=== PATIENT | female | born 1995 | race Caucasian/White ===

== ENCOUNTER 2018-07-13 05:27 | Inpatient (IN) | payer OTHER ==
[~2018-07-13 05:27] MED LIST: DEXTROSE 5%-LACTATED RINGERS 1,000 ML IV SCH
[2018-07-13 06:27] LABS: BASO % 0.3 % (0-2.0); HEMATOCRIT 34.4 % (32.4-45.2); HEMOGLOBIN 12.3 GM/dL (10.7-15.3); LYMPH % 29.3 % (8-40); MCH 32.6 pg (25.7-33.7); MCHC 35.8 g/dl (32.0-36.0); MEAN CELL VOLUME 91.1 fl (80-96); MEAN PLT VOLUME 8.6 fl (7.5-11.1); MONO % 5.1 % (3.8-10.2); NEUT % 64.3 % (42.8-82.8); PLATELET COUNT 274 K/MM3 (134-434); RBC 3.78 M/mm3 (3.60-5.2); WHITE BLOOD COUNT 7.4 K/mm3 (4.0-10.0)
[2018-07-13 06:29] VITALS: BMI 25.9
[2018-07-13 06:30] LABS: URINE APPEARANCE SLCLOUDY; URINE BILIRUBIN NEGATIVE (<2.0 mg/dL); URINE COLOR LTYELLOW; URINE GLUCOSE (UA) NEGATIVE (NEGATIVE); URINE KETONE NEGATIVE (NEGATIVE); URINE LEUK ESTERASE TRACE (NEGATIVE); URINE NITRITE NEGATIVE (NEGATIVE); URINE PROTEIN NEGATIVE (NEGATIVE); URINE UROBILINOGEN NEGATIVE mg/dL (0.2-1.0)
[2018-07-13 06:39] LABS: INR 0.87 (0.83-1.09); PROTHROMBIN TIME (PATIENT) 10.3 SEC (9.7-13.0)
[2018-07-13 06:42] LABS: ACTIVATED PTT 25.7 SECONDS (25.2-36.5)
[2018-07-13 06:43] LABS: COCAINE, UR NEGATIVE ng/ml (CUTOFF=300); METHADONE, UR NEGATIVE ng/ml (CUTOFF=300); OPIATES, URI NEGATIVE ng/ml (CUTOFF=300); PHENCYCLIDINE,URINE NEGATIVE ng/ml (CUTOFF=25); URINE AMPHETAMINES NEGATIVE ng/ml (CUTOFF=500); URINE BARBITURATES NEGATIVE ng/ml (CUTOFF=200); URINE BENZODIAZEPINES NEGATIVE ng/ml (CUTOFF=200)
[2018-07-13 06:45] LABS: EPI CELLS FEW /HPF (FEW); URINE BACTERIA RARE /hpf (NONE SEEN)
[2018-07-13 06:47] LABS: ANION GAP 10 MMOL/L (8-16); BLOOD UREA NITROGEN 12 mg/dL (7-18); CALCIUM 8.1 mg/dL (8.5-10.1); CHLORIDE 107 mmol/L (98-107); CO2 21 mmol/L (21-32); CREATININE 0.5 mg/dL (0.55-1.3); GLUCOSE,RANDOM 82 mg/dL (74-106); POTASSIUM 4.2 mmol/L (3.5-5.1); SODIUM 138 mmol/L (136-145)
--- NOTE | 2018-07-13 08:51 | HP ---
Past Medical History - Primary Care Physician PCP:: Basil Collado - Admission Chief Complaint: 23yo P0 with at EGA 39wks admitted with SROM in latent labor. History of Present Illness: complicated by: Late PNC transfer from [place] with limited care History Source: Patient, Medical Record Limitations to Obtaining History: No Limitations - Past Medical History DIAL POLISHER: No: Alzheimer's, CVA, Dementia, Migraine, Multiple Sclerosis, Peripheral Neuropathy, Parkinson's, Seizure, Syncope, TIA, Vertigo, Other Cardiovascular: No: AFIB, Aneurysm, Aortic Insufficiency, Aortic Stenosis, CAD, CHF, Deep Vein Thrombosis, HTN, Hyperlipdemia, [place], Mitral Insufficiency, Mitral Stenosis, Murmur, Pulmonary Hypertension, Other Pulmonary: No: Asthma, Bronchitis, Cancer, COPD, O2 Dependent, Pneumonia, Previously Intubated, Pulmonary Embolus, Pulmonary Fibrosis, Sleep Apnea, Other Gastrointestinal: No: Ascites, Cancer, Constipation, Crohn's Disease, Diverticulitis, Diverticulosis, Esophageal Varices, Gastritis, GERD, GI Bleed, Hemorrhoids, Hiatal Hernia, Inflamatory Bowel Disease, Irritable Bowel Disease, Pancreatitis, Peptic Ulcer Disease, Ulcerative Colitis, Other Hepatobiliary: No: Cirrhosis, Cholelithiasis, Cholecystitis, Choledocholithiasis , Hepatitis A, Hepatitis B, Hepatitis C, Other Renal/: No: Renal Failure, Renal Inusuff, BPH, Cancer, Hematuria, Hemodialysis , Neurogenic Bladder, Renal Calculi, UTI, Other Reproductive: No: Ectopic , Endometriosis, Fibroids, PID, Polycystic Ovary Syndrome, Postmenopausal, Other ...: 1 ...Para: 0 ...Term: 0 ...: 0 ...Spon : 0 ...Induced : 0 ...Multiple Gestation: 0 ... Weeks Gestation by Dates: 39.0 ...EDC by Dates: 07/20/18 Heme/Onc: No: Anemia, B12 Deficiency, Bleeding Disorder, Cancer, Current Chemotherapy, Current Radiation Therapy, Hemochromatosis, Hypercoaguable State, Myeloproliferative Synd, Sickle Cell Disease, Sickle Cell Trait, Thrombocytopenia, Other Infectious Disease: No: AIDS, C-Diff, Herpes Zoster, HIV, MRSA, STD's, Tuberculosis, VREF, Other Psych: No: Addictions, Anxiety, Bipolar, Depression, Panic, Psychosis, Schizophrenia, Other Musculoskeletal: No: Bursitis, Chronic low back pain, Hemiparesis, Hemiplegia, Osteoarthritis, Paraplegia, Other Rheumatology: No: Fibromyalgia, Gout, Lupus, Rheumatoid Arthritis, Sarcoidosis, Vasculitis, Other ENT: No: Allergic Rhinitis, Sinusitis, Other Endocrine: No: Charli's Disease, [place]'s Disease, Diabetes Insipidus, Diabetes Mellitus, Hyperparathyroidism, Hyperthyroidism, Hypothyroidism, Osteopenia, SIADH, Other Dermatology: No: Basal Cell, Cellulitis, Eczema, Melanoma, Psoriasis, Squamous Cell, Other - Past Surgical History Past Surgical History: Yes: Breast Biopsy Hx Myomectomy: No Hx Transabdominal Cerclage: No - Smoking History Smoking history: Never smoked Have you smoked in the past 12 months: No - Alcohol/Substance Use Hx Alcohol Use: No - Social History ADL: Independent History of Recent Travel: Yes Home Medications - Allergies Allergies/Adverse Reactions: Allergies Allergy/AdvReac Type Severity Reaction Status Date / Time No Known Allergies Allergy Verified 07/13/18 06:10 - Home Medications Home Medications: Ambulatory Orders Vitamins (Sjr) - 1 tab PO DAILY 07/13/18 Family Disease History - Family Disease History Family History: Unable to Obtain Review of Systems - Review of Systems Constitutional: reports: No Symptoms Eyes: reports: No Symptoms HENT: reports: No Symptoms Neck: reports: No Symptoms Cardiovascular: reports: No Symptoms Respiratory: reports: No Symptoms Gastrointestinal: reports: No Symptoms Genitourinary: reports: No Symptoms Breasts: reports: No Symptoms Reported Musculoskeletal: reports: No Symptoms Integumentary: reports: No Symptoms Neurological: reports: No Symptoms Endocrine: reports: No Symptoms Hematology/Lymphatic: reports: No Symptoms Psychiatric: reports: No Symptoms Pain Intensity: 1 Physical Exam - Maternity Vital Signs: Vital Signs Temperature 98.6 F 07/13/18 08:00 Pulse Rate 84 07/13/18 08:00 Respiratory Rate 20 07/13/18 08:00 Blood Pressure 131/83 07/13/18 08:00 O2 Sat by Pulse Oximetry (%) Constitutional: Yes: Well Nourished, No Distress, Calm Eyes: Yes: WNL, Conjunctiva Clear, EOM Intact HENT: Yes: WNL, Atraumatic, Normocephalic Neck: Yes: WNL, Supple, Trachea Midline Cardiovascular: Yes: WNL, Regular Rate and Rhythm Lungs: Clear to auscultation, Normal air movement - Abdominal Exam/OB Fundal Height: 39 Number of Fetuses: Single Presentation: Vertex Contractions: Yes Regularity: Irregular Intensity: Mild Monitor Mode: External Heart Rate (range): 145 Heart Rate Location: Midline Category: I Accelerations: Non-Uniform Decelerations: None - Vaginal Exam/OB Vaginal Bleediing: No Speculum Exam: No Dilatation (cm): 2 Amniotic Membrane Status: Leaking Nitrazine Test: Positive Amniotic Fluid: Yes: Clear Presentation: Vertex/Position - Physical Exam Musculoskeletal: Yes: WNL Extremities: Yes: WNL Edema: No Integumentary: Yes: WNL Deep Tendon Reflex Grade: Normal +2 ...Motor Strength: WNL Psychiatric: Yes: WNL, Alert, Oriented - Labs Lab Results: CBC, BMP 07/13/18 05:30 07/13/18 05:30 Hemorrhage Risk Assessment - Risk Factors Medium Risk Factors: Yes: None High Risk Factors: Yes: None Risk Score: 1 Risk Level: Medium Risk Assessment/Plan 23yo P0 with at EGA 39wks admitted with SROM in latent labor. Pt is early latent labor. She has no complaints. The fetus with Category I tracing. Plan expectant management and augmentation of labor later.
[2018-07-13] MEDS ORDERED: OXYTOCIN 30 UNITS in 0.9% NS 30 UNIT/500 ML INFUS.BAG IVPB SCH (10:15)
[2018-07-13] MEDS ORDERED: DEXTROSE 5%-LACTATED RINGERS 1,000 ML IV SCH (10:15)
[2018-07-13] MEDS ORDERED: BUTORPHANOL TARTRATE 1 MG/ML VIAL IVPB ONE (10:30)
[2018-07-13] MEDS ORDERED: PROMETHAZINE HCL 25 MG/1 ML VIAL IVPB ONE (10:30)
[2018-07-13] MEDS ORDERED: TUBERCULIN PPD 5 TU/0.1ML SYRINGE (IN PATIENT USE ONLY) ID ONE (10:30)
[2018-07-13] MEDS ORDERED: OXYTOCIN 20 UNITS in 0.9% NS 20 UNIT/1,000 ML INFUS.BAG IV ONE (13:14)
[2018-07-13] MEDS ORDERED: LIDOCAINE HCL 1% PRESERVATIVE FREE - 30ML VIAL ONE (13:15)
--- NOTE | 2018-07-13 13:39 | PN ---
Ante-Partal Exam - Subjective Subjective: Patient comfortable, no complaints Vital Signs: Vital Signs Temperature 98.3 F 07/13/18 13:00 Pulse Rate 74 07/13/18 13:00 Respiratory Rate 20 07/13/18 13:00 Blood Pressure 124/73 07/13/18 13:00 O2 Sat by Pulse Oximetry (%) Bleeding: No Headache: No Visual changes: No Right upper quadrant pain: No - Contractions Contractions: Yes Regularity: Regular Intensity: Moderate Monitor Mode: External - Exam during Labor Heart Rate: 150 Variability: Moderate Category: I Monitor Accelerations: Present Monitor Decelerations: None Exam: Vaginal Dilatation (cm): 6 Effacement (%): 70 Amniotic Membrane Status: Ruptured (forebag ruptured) Amniotic Fluid: Clear Presentation: Vertex Station: -1 - Intrapartum Hemorrhage Risk Medium Risk Factors: None High Risk Factors: None Risk Score: 0 Risk Level: Low Risk - Assessment/Plan Assessment/Plan: 23 yo active labor 1. good cervical change on pitocin, will continue per protocol 2. GBS negative 3. Declines offer for pain control 4. Category I FHT 5. Will proceed for expectant management
[2018-07-13] MEDS ORDERED: BUTORPHANOL TARTRATE 1 MG/ML VIAL ONE ×2 (16:41)
[2018-07-13] MEDS ORDERED: PROMETHAZINE HCL 25 MG/1 ML VIAL ONE (16:41)
--- NOTE | 2018-07-13 16:44 | PN ---
Ante-Partal Exam - Subjective Subjective: Patient reports pain with contractions Vital Signs: Vital Signs Temperature 98.5 F 07/13/18 16:00 Pulse Rate 83 07/13/18 16:00 Respiratory Rate 20 07/13/18 16:00 Blood Pressure 117/73 07/13/18 16:00 O2 Sat by Pulse Oximetry (%) Bleeding: No Headache: No Visual changes: No Right upper quadrant pain: No - Contractions Contractions: Yes Regularity: Regular Intensity: Strong Monitor Mode: External - Exam during Labor Heart Rate: 155 Variability: Moderate Category: I Monitor Accelerations: Absent Monitor Decelerations: None Exam: Vaginal Dilatation (cm): 8 Effacement (%): 90 Amniotic Membrane Status: Ruptured Amniotic Fluid: Clear Presentation: Vertex Station: -1 - Intrapartum Hemorrhage Risk Medium Risk Factors: None High Risk Factors: None Risk Score: 0 Risk Level: Low Risk - Assessment/Plan Assessment/Plan: 23 yo active labor 1. Good cervical change. Will continue pitocin per protocol 2. Declines offer for epidural will give stadol 3. GBS negative 4. Will proceed with expectant management
[2018-07-13] MEDS ORDERED: BENZOCAINE 20% 57 GM BOTTLE TP PRN (20:38)
[2018-07-13] MEDS ORDERED: METHYLERGONOVINE MALEATE 0.2 MG/1 ML AMP IM PRN (20:38)
[2018-07-13] MEDS ORDERED: WITCH HAZEL 50% (TUCKS) 40 PAD/JAR PAD TP PRN (20:38)
[2018-07-13] MEDS ORDERED: BISACODYL 10 MG SUPP.RECT RC PRN (20:38)
[2018-07-13] MEDS ORDERED: BENZOCAINE 28 GM HEMORRHOIDAL OINTMENT TP PRN (20:38)
--- NOTE | 2018-07-13 20:43 | PN ---
Delivery - Delivery Vaginal Delivery: No Problems Type of Anesthesia: None (IV Stadol / Phenergan) Episiotomy/Laceration: Left Mediolateral (second degree), Right Mediolateral ( first degree), 2nd degree EBL (cc): 500 Delivery, Single - Stages of Labor Date 1st Stage Initiatied: 07/13/18 Time 1st Stage Initiated: 16:40 Date 2nd Stage Initiated: 07/13/18 Time 2nd Stage Initiated: 19:15 Date of Delivery: 07/13/18 Time of Delivery: 20:03 Date Placenta Delivered: 07/13/18 Time Placenta Delivered: 20:24 Placenta: Yes: Spontaneous - Condition of Infant Gender: Female Position: Left, OA - 1 Minute Total Score: 8 5 Minutes Total Score: 9 - Feeding Plan Initial Plan: Elected not to breastfeed exclusively throughout hospitalization Remarks - Remarks Remarks: Patient progressed to fully dilated and at 2002 via delivered a viable female in SAHIL position, APGARs 8,9. Weight and length unknown at this time. Head delivered spontaneously. Nuchal cord noted and reduced, left posterior shoulder delivered with compound arm without issue followed by right shoulder and body without difficulty. with spontaneous cry and placed on mother's abdomen. Nose and mouth was bulb suctioned. Cord was clamped and cut. Perineum and vagina examined, a left lateral second degree and right lateral first degree laceration were noted and repaired in the usual fashion. Placenta was delivered spontaneously and intact. 20 units of pitocin in 1 L IVF was given. All counts correct x 2. Mother and stable in LDR. EBL 500cc.
[2018-07-13 20:44] LABS: VENOUS PC02 53.1 mmHg (38-52); VENOUS PO2 27.8 mmHg (28-48)
[2018-07-13] MEDS ORDERED: D5W-LR W/ 20 UNITS OXYTOCIN 20 UNIT/1,000 ML INFUS.BAG IV SCH (20:45)
[2018-07-13 20:46] LABS: ARTERIAL BLOOD GAS pH 7.08 (7.35-7.45)
[2018-07-13 20:48] LABS: ARTERIAL BLOOD GAS BASE EXCESS -9.9 meq/l (-2-2)
[2018-07-13 20:53] LABS: ARTERIAL BLOOD GAS PCO2 76.5 mmHg (35-45)
[2018-07-13 20:54] LABS: ARTERIAL BLD GAS O2 SATURATION 12.2 % (90-98.9); ARTERIAL BLOOD GAS PO2 13.7 mmHg (80-100)
[2018-07-13 20:55] LABS: VENOUS PH 7.19 (7.32-7.42)
[2018-07-14] MEDS: ACETAMINOPHEN 325 MG TABLET (FP) PO PRN ×2 (05:41→21:17)
[2018-07-14] MEDS: IBUPROFEN 600 MG TABLET (FP) PO PRN ×2 (05:42→21:16)
--- NOTE | 2018-07-14 06:27 | PN ---
Post Progress Note - Subjective Subjective: Patient without acute complaints. Reports tolerating oral intake without nausea or vomiting. Ambulating without dizziness. Denies fevers or chills. Pain well controlled with oral pain medication. without difficulty. Passing flatus. Post Day: 1 Type of Delivery: Vital Signs: Vital Signs Temperature 98.7 F 07/14/18 05:22 Pulse Rate 108 H 07/14/18 05:22 Respiratory Rate 20 07/14/18 05:22 Blood Pressure 92/58 L 07/14/18 05:22 O2 Sat by Pulse Oximetry (%) 97 07/13/18 21:30 Breast Exam: Yes: Engorged Uterus: Yes: Fundus Firm, Fundus below umbilicus Abdomen/GI: Yes: Abdomen soft, Passing flatus, Tolerating PO. No: Tender Lochia: Yes: Serosa Lochia, amount: Small Extremities: Yes: Calves non-tender. No: Edema Perineum: Yes: Laceration Activity: Ambulating - Labs Labs: CBC WBC 7.4 K/mm3 (4.0-10.0) 07/13/18 05:30 RBC 3.78 M/mm3 (3.60-5.2) 07/13/18 05:30 Hgb 12.3 GM/dL (10.7-15.3) 07/13/18 05:30 Hct 34.4 % (32.4-45.2) 07/13/18 05:30 MCV 91.1 fl (80-96) 07/13/18 05:30 MCH 32.6 pg (25.7-33.7) 07/13/18 05:30 MCHC 35.8 g/dl (32.0-36.0) 07/13/18 05:30 RDW 14.0 % (11.6-15.6) 07/13/18 05:30 Plt Count 274 K/MM3 (134-434) 07/13/18 05:30 MPV 8.6 fl (7.5-11.1) 07/13/18 05:30 Absolute Neuts (auto) 4.8 K/mm3 (1.5-8.0) 07/13/18 05:30 Neutrophils % 64.3 % (42.8-82.8) 07/13/18 05:30 Lymphocytes % 29.3 % (8-40) 07/13/18 05:30 Monocytes % 5.1 % (3.8-10.2) 07/13/18 05:30 Eosinophils % 1.0 % (0-4.5) 07/13/18 05:30 Basophils % 0.3 % (0-2.0) 07/13/18 05:30 Nucleated RBC % 0 % (0-0) 07/13/18 05:30 Assessment/Plan 23 yo PPD # 1 s/p , afebrile, vital signs stable, doing well 1. Continue routine care. 2. Follow up AM CBC 3. Rh positive status, no rhogam indicated. 4. Encourage ambulation 5. Continue oral pain medication 6. Anticipate discharge home day #2
[2018-07-14 09:08] LABS: BASO % 0.3 % (0-2.0); EOS % 0.1 % (0-4.5); HEMATOCRIT 29.1 % (32.4-45.2); LYMPH % 12.7 % (8-40); MCHC 34.3 g/dl (32.0-36.0); MEAN CELL VOLUME 93.3 fl (80-96); MEAN PLT VOLUME 8.6 fl (7.5-11.1); MONO % 6.5 % (3.8-10.2); NEUT % 80.4 % (42.8-82.8); PLATELET COUNT 243 K/MM3 (134-434); RBC 3.12 M/mm3 (3.60-5.2); RDW 13.9 % (11.6-15.6); WHITE BLOOD COUNT 13.3 K/mm3 (4.0-10.0)
[2018-07-14] MEDS: PRENATAL VITAMINS W/ FOLIC ACID TABLET (FP) PO SCH (10:11)
[2018-07-14] MEDS ORDERED: SENNOSIDES/DOCUSATE COMBO (SENNA PLUS) TABLET (UD) PO PRN (22:00)
--- NOTE | 2018-07-15 07:10 | DS ---
Physical Exam-EDUCATIONAL THERAPIST Vital Signs: Vital Signs Temperature 98.7 F 07/14/18 22:00 Pulse Rate 98 H 07/14/18 22:00 Respiratory Rate 18 07/14/18 22:00 Blood Pressure 117/78 07/14/18 22:00 O2 Sat by Pulse Oximetry (%) 97 07/13/18 21:30 Constitutional: Yes: Well Nourished, No Distress, Calm Eyes: Yes: WNL, Conjunctiva Clear, EOM Intact HENT: Yes: WNL, Atraumatic, Normocephalic Neck: Yes: WNL, Supple, Trachea Midline Cardiovascular: Yes: WNL, Regular Rate and Rhythm Respiratory: Yes: WNL, Regular, CTA Bilaterally Gastrointestinal: Yes: WNL ...Rectal Exam: Yes: WNL Renal/: Yes: WNL External Genitalia: Yes: Normal ....Post : Yes: Uterus firm, Uterus non-tender, Slight lochia rubra Breast(s): Yes: WNL Musculoskeletal: Yes: WNL Extremities: Yes: WNL Integumentary: Yes: WNL Neurological: Yes: WNL, Alert, Oriented ...Motor Strength: WNL Psychiatric: Yes: WNL, Alert, Oriented Labs: CBC, BMP 07/14/18 07:45 07/13/18 05:30 Delivery - Delivery Vaginal Delivery: No Problems, Spontaneous Type of Anesthesia: Local Episiotomy/Laceration: 2nd degree EBL (cc): 500 Delivery, Single - Stages of Labor Date 1st Stage Initiatied: 07/13/18 Time 1st Stage Initiated: 16:40 Date 2nd Stage Initiated: 07/13/18 Time 2nd Stage Initiated: 19:15 Date of Delivery: 07/13/18 Time of Delivery: 20:03 Time Placenta Delivered: 20:24 Placenta: Yes: Spontaneous - Condition of Direct Marketing Coordinator/User Experience Team Lead Present: No Infant Gender: Female Weight: 7 lb 5 oz Position: Left, OA Total Hours ROM (Hrs/Mins): 4H39M - 1 Minute Total Score: 8 5 Minutes Total Score: 9 - Feeding Plan Initial Plan: Elected not to breastfeed exclusively throughout hospitalization Discharge Summary Reason For Visit: LABOR Current Active Problems Vaginal delivery (Acute) Procedures: Principal: Hospital Course: no complication Condition: Good - Instructions Diet, Activity, Other Instructions: Physical activity Resume your normal everyday activity as tolerated no heavy lifting or exercise until seen by your surgeon. You may walk unlimited shawn of and climb stairs. You may resume driving the car when you feel safe and comfortable behind the wheel. No sexual activity as instructed. Diet There are no dietary restrictions. Eat healthy, high-fiber foods. Drink 6 to 8 glasses of liquid each day. This will assist in keeping your bowels are regular. Pain management You may take Tylenol or acetaminophen or Ibuprofen (for example, Motrin, Advil etc.) from my pain prescription medication is ordered should be taken as prescribed for moderate to severe pain. Call MD for any of the following: Severe pain not relieved by medication Fever of 101 or higher Excessive bleeding or drainage on dressing Inability to urinate Referrals: Citlaly Yañez MD [Staff Physician] - Disposition: HOME - Home Medications Comprehensive Discharge Medication List: Ambulatory Orders Vitamins (Sjr) - 1 tab PO DAILY 07/13/18 Ibuprofen [Motrin -] 600 mg PO QID #28 tablet 07/14/18
[2018-07-15] MEDS: PRENATAL VITAMINS W/ FOLIC ACID TABLET (FP) PO SCH (10:42)
[2018-07-15 10:56] VITALS: BP 117/73; PULSE 93; TEMP 97.8
== END 2018-07-15 13:10 | disposition home or self-care (01) | DRG 560 ==
LOC: JLDR 05:27 → J3W 23:40
PROVIDERS: ADMIT Obstetrics & Gynecology; ATTEND Obstetrics & Gynecology
PROC: 10E0XZZ Delivery of Products of Conception, External Approach (ICD-10-PCS; principal; 2018-07-13)
PROC: 0KQM0ZZ Repair Perineum Muscle, Open Approach (ICD-10-PCS; 2018-07-13)
DX: O32.6XX0 Maternal care for compound presentation, not applicable or unspecified (principal); O62.3 Precipitate labor; O70.1 Second degree perineal laceration during delivery; Z3A.39 39 weeks gestation of pregnancy; Z37.0 Single live birth
CPT/HCPCS: 36415; 36600; 59409; 80048; 80307; 81003; 81015; 82803; 85025; 85610; 85730; 86593; 86850; 86900; 86901